=== PATIENT | female | born 2000 | race Caucasian/White ===

== ENCOUNTER → 2018-07-04 | Outpatient (CLI) | payer OTHER, MEDICAID ==
--- NOTE | 2018-07-04 11:52 | Diagnostic Imaging Report ---
INDICATION: survey. TECHNIQUE: Multiple real-time grayscale images were obtained over the gravid uterus. COMPARISON: None. FINDINGS: There is a single live fetus in a cephalic presentation. heart rate was recorded at 147 beats per minute. Placenta is anterior. Amniotic fluid volume is normal. survey demonstrates kidneys, bladder, and stomach to be unremarkable. There is a four-chamber heart. There is a three-vessel cord with normal insertion. The spine is unremarkable. brain is somewhat limited in evaluation due to low head position. Biometrical measurements are as follows: Biparietal 4.71 cm, age 20 weeks 2 days. Head circumference 16.98 cm, age 19 weeks 5 days. Abdominal circumference 14.06 cm, age 19 weeks 4 days. Femur length 3.06 cm, age 19 weeks 4 days. Sonographic estimate age: 19 weeks 6 days. Sonographic estimated date of delivery: 11/22/2018. Estimated Weight: 296 gm (+/- 43 gm). LMP percentile: 41%. heart rate: 147 beats per minute. number: 1 of 1. IMPRESSION: Single live IUP of 19 weeks 6 days gestational age with an estimated date of confinement sonographically of 11/22/2018. survey is unremarkable, although head is somewhat limited due to position. Dictated by: Dictated on workstation # [id number]
== END ==
LOC: RAD 09:52
PROVIDERS: ATTEND Obstetrics & Gynecology
DX: Z36.89 Encounter for other specified antenatal screening (principal); Z3A.19 19 weeks gestation of pregnancy
CPT/HCPCS: 76805

== ENCOUNTER 2018-11-07 09:53 | Inpatient (IN) | payer MEDICAID | END 2018-11-09 12:19 | disposition home or self-care (01) | LOC: WSo 09:53 → LDRP 09:53 ==

== ENCOUNTER → 2020-01-08 | Outpatient (CLI) | payer MEDICAID ==
[~2020-01-08] MED LIST: Benzocaine/Menthol TP; DIBU30OI TOP; DOCU100C37 PO; FERR325T18 PO; IBUP-844 PO
--- NOTE | 2020-01-08 15:12 | Diagnostic Imaging Report ---
INDICATION: Pain and swelling of bilateral hands. Family history of rheumatoid arthritis. COMPARISON: None. FINDINGS: Two views of each hand were obtained and show no fractures, dislocations, or other acute bony abnormalities. Joint spaces are well maintained throughout. The soft tissues appear unremarkable. No radiopaque foreign bodies are identified. IMPRESSION: Unremarkable radiographic exam of the bilateral hands. Dictated by: Dictated on workstation # [id number]
== END ==
LOC: RAD FS 13:13
PROVIDERS: ATTEND Nurse Practitioner Family
DX: M79.89 Other specified soft tissue disorders (principal); M25.542 Pain in joints of left hand; M25.541 Pain in joints of right hand; Z82.69 Family history of other diseases of the musculoskeletal system and connective tissue

== ENCOUNTER → 2021-04-18 | Outpatient (CLI) | payer MEDICAID | LOC: LAB FS 12:09 | PROVIDERS: ATTEND Registered Nurse Emergency | DX: N92.6 Irregular menstruation, unspecified (principal) | CPT/HCPCS: 36415; 84703 ==